=== PATIENT | female | born 1940 | race African-American/Black ===

== ENCOUNTER 2023-10-06 21:25 | Emergency (ER) | payer MEDICARE, OTHER ==
[~2023-10-06] VITALS: Ht 160 cm; Wt 59.0 kg
[2023-10-06 21:35] VITALS: BP 223/110; PULSE 107; RESP 18; TEMP 97.5; O2SAT 97
== END 2023-10-06 22:14 | disposition left against medical advice (07) ==
LOC: ER 21:25
DX: R10.9 Unspecified abdominal pain (principal); Z53.21 Procedure and treatment not carried out due to patient leaving prior to being seen by health care provider
CPT/HCPCS: 99281